=== PATIENT | male | born 1990 | race Caucasian/White ===

== ENCOUNTER 2023-07-18 06:49 | Emergency (ER) | payer OTHER ==
[~2023-07-18] VITALS: Ht 170.2 cm; Wt 90.7 kg
[~2023-07-18 06:49] MED LIST: CIPR500 PO; Zithromax250 MG PO
[2023-07-18] MEDS ORDERED: TIZA4 PO (08:50)
[2023-07-18 09:02] VITALS: BP 132/88
== END 2023-07-18 09:35 | disposition home or self-care (01) ==
LOC: ER 06:49
DX: M43.6 Torticollis (principal); F17.200 Nicotine dependence, unspecified, uncomplicated; X50.9XXA Other and unspecified overexertion or strenuous movements or postures, initial encounter; Y92.009 Unspecified place in unspecified non-institutional (private) residence as the place of occurrence of the external cause; Y93.B9 Activity, other involving muscle strengthening exercises
CPT/HCPCS: 96372; 99283-25; J1885